=== PATIENT | male | born 2000 | race Caucasian/White ===

== ENCOUNTER 2024-10-24 00:18 | Emergency (ER) | payer OTHER, SELFPAY ==
[2024-10-24 00:27] VITALS: BP 128/58; PULSE 61; RESP 17; TEMP 36.2; O2SAT 100
--- NOTE | 2024-10-24 02:32 | ED.GENADULT ---
HPI - General Adult General Chief complaint: Eye Problems Stated complaint: R eye scratch Time Seen by Provider: 10/24/24 01:24 History of Present Illness HPI narrative: This is a 23-year-old male presenting with right eye irritation. Patient playing a sand volleyball terminally he had sand kicked in his face. Since then he has had a foreign body sensation in his right eye. He has seen an outside urgent care and was discharged with erythromycin ointment. He still feels like there is a foreign body in his eye. He has flushed the eye at home multiple times. No visual changes. He is not wearing his contacts and has poor vision overall Related Data Allergies Allergy/AdvReac Type Severity Reaction Status Date / Time No Known Allergies Allergy Verified 10/24/24 01:55 Exam Narrative: APPEARANCE: No apparent distress. Head: atraumatic. EYES: EOMI, NOSE: Atraumatic NECK: Trachea midline RESPIRATORY: No increased rate of breathing CARDIOVASCULAR: RRR, ABDOMINAL: Non-distended MUSCULOSKELETAl: No obvious deformities NEURO: Alert. Moving 4/4 extremities SKIN:: Warm, dry. Normal color PSYCHIATRIC: Normal affect Eye exam: Visual accusing per nursing staff note. Patient is not wearing his contacts and states he has poor vision overall. This is his baseline. Fluorescein stain negative bilaterally. No foreign bodies noted. Right eye lid was everted with no foreign bodies noted. IOP 20 bilaterally Course Vital Signs Vital signs: Vital Signs Temperature 97.1 F L 10/24/24 00:27 Pulse Rate 61 10/24/24 00:27 Respiratory Rate 17 10/24/24 00:27 Blood Pressure 128/58 L 10/24/24 00:27 Pulse Oximetry 100 10/24/24 00:27 Temperature 97.1 F L 10/24/24 00:27 Pulse Rate 61 10/24/24 00:27 Respiratory Rate 17 10/24/24 00:27 Blood Pressure 128/58 L 10/24/24 00:27 Pulse Oximetry 100 10/24/24 00:27 Medical Decision Making [facility] Narrative Medical decision making narrative: -Course: 23-year-old male presenting with foreign body sensation after having sand kicked in his face had a soft volleyball tournament. The eye was stained with no obvious corneal abrasions. No foreign bodies were noted. His eyelid was everted with no abrasions to the back of the eyelid or foreign bodies. I offered to flush the patient's eye at with a [place] lens and the patient declined. He says he has flushed it multiple times at home he does not think there is any sand in it he thinks it is just irritated. He would like to be discharged. He is instructed follow-up with his supervisor maintenance and custodians if his eye does not improve in 24 hours. -DDX includes but is not limited to: Foreign body, corneal abrasion Vital Signs Vital Signs: Vital Signs Temperature 97.1 F L 10/24/24 00:27 Pulse Rate 61 10/24/24 00:27 Respiratory Rate 17 10/24/24 00: Blood Pressure 128/58 L 10/24/24 00:27 Pulse Oximetry 100 10/24/24 00:27 Temperature 97.1 F L 10/24/24 00:27 Pulse Rate 61 10/24/24 00:27 Respiratory Rate 17 10/24/24 00:27 Blood Pressure 128/58 L 10/24/24 00:27 Pulse Oximetry 100 10/24/24 00:27 Discharge Plan Discharge Clinical Impression: Eye irritation Patient Disposition: Home Condition: Stable Instructions: Antibiotic Form, Corneal Abrasion (DC) Additional Instructions: Please continue using the erythromycin ointment. Please follow-up with an supervisor maintenance and custodians in next 24 -48 hrs. If you develop severe pain or changes to vision please return to the ED for re-evaluation. Patient Language: Argentine Follow-up/Referrals: PHYSICIAN,INSULATION INSPECTOR [Primary Care Provider, Internal Medicine]
[2024-10-24] MEDS: IBUPROFEN 400 MG TABLET 800 MG PO (02:58)
[2024-10-24] MEDS: ACETAMINOPHEN 500 MG TABLET 1000 MG PO (02:58)
== END 2024-10-24 03:18 | disposition home or self-care (01) ==
PROVIDERS: Emergency Provider Emergency Medicine
DX: H57.89 Other specified disorders of eye and adnexa (principal)
CPT/HCPCS: 99283; A9270